=== PATIENT | male | born 1940 | race Caucasian/White ===

== ENCOUNTER 2024-07-26 11:30 | Inpatient (IN) ==
[2024-07-26 12:22] LABS: ABS Eosinophils 0.2 10^3/uL (0.0-0.5); ABS Lymphocytes 1.1 10^3/uL (1.0-4.8); ABS Monocytes 0.6 10^3/uL (0.0-1.1); ABS Neutrophils 4.8 10^3/uL (1.5-7.6); ABS Nucleated RBC 0.01 10^3/ul; Eosinophil % 2.3 %; Lymphocyte % 16.9 %; Mean Corpuscular Hemoglobin 31.7 pg (27-33); Mean Corpuscular Volume 93.2 fL (80-97); Mean Platelet Volume 8.4 fL (7.5-11.2); Nucleated Red Blood Cells % 0.1 %/100WBC (0.0-0.8); Platelet Count 155 10^3/uL (150-450); Red Blood Count 4.72 10^6/uL (4.06-5.63); Red Cell Distribution Width 13.5 % (12-17); White Blood Count 6.7 10^3/uL (3.6-10.2)
[2024-07-26 12:33] LABS: INR 1.12 (0.85-1.14)
[2024-07-26] MEDS: Furosemide 20 mg/2 ml IV VIAL IV SLOW PU ONE (13:19)
[2024-07-26 13:45] LABS: Albumin 3.9 g/dL (3.2-5.2); Albumin/Globulin Ratio 1.8 (1-3); C Reactive Protein 23.66 mg/L (<8.01); Calcium 8.7 mg/dL (8.6-10.3); Globulin 2.2 g/dL (2-4); Magnesium 1.9 mg/dL (1.9-2.7); Phosphorus 3.5 mg/dL (2.5-5.0); Potassium 3.8 mmol/L (3.5-5.0); Total Bilirubin 1.1 mg/dL (0.2-1.0); Total Protein 6.1 g/dL (6.4-8.9); eGFR CKD-EPI 73.3 (>60)
[2024-07-26 13:54] LABS: Urine Appearance Clear; Urine Bilirubin Negative (Negative); Urine Blood Negative (Negative); Urine Color Yellow; Urine Glucose Negative (Negative); Urine Ketones Negative (Negative); Urine Nitrite Negative (Negative); Urine Protein Trace (Negative); Urine Specific Gravity 1.019 (1.002-1.030); Urine Urobilinogen Negative (Negative)
[2024-07-26 13:58] LABS: High Sensitivity Troponin 1 Hr 96 pg/mL (<20)
[2024-07-26] MEDS: Sulfur Hexaflouride MICROSPHR 25 MG VIAL IV PRN (14:54)
[2024-07-26] MEDS: Iohexol 350 (CONTRAST) 500 ML MDV IV ONE (16:44)
[2024-07-26] MEDS: cefTRIAXone 1 gm/50 mL D5W 1 GM/50 ML BAG IV ONE (18:23)
[2024-07-26] MEDS: Albuterol/Ipratropium NEB.SOL (2.5/0.5 MG) 3 ML NEB.SOLN INH SCH (19:20)
[2024-07-26] MEDS: methylPREDNISolone SOD SUCC 40 mg/ml 1 ml VIAL IV SCH (20:44)
[2024-07-26] MEDS: Furosemide 20 mg/2 ml IV VIAL IV ONE (20:44)
[2024-07-26] MEDS: Enoxaparin 40 MG/0.4 ML SYR SUBCUT SCH (20:47)
[2024-07-27 06:14] LABS: ABS Lymphocytes 0.4 10^3/uL (1.0-4.8); ABS Monocytes 0.1 10^3/uL (0.0-1.1); ABS Neutrophils 2.4 10^3/uL (1.5-7.6); Eosinophil % 0.1 %; Hematocrit 41.4 % (38-53); Hemoglobin 14.2 g/dL (13.2-16.3); Lymphocyte % 12.6 %; Mean Corpuscular Hemoglobin 31.6 pg (27-33); Mean Corpuscular Hgb Conc 34.4 g/dL (31-36); Mean Corpuscular Volume 91.9 fL (80-97); Mean Platelet Volume 8.4 fL (7.5-11.2); Nucleated Red Blood Cells % 0.1 %/100WBC (0.0-0.8); Platelet Count 145 10^3/uL (150-450); Red Cell Distribution Width 13.1 % (12-17); White Blood Count 2.9 10^3/uL (3.6-10.2)
[2024-07-27 06:31] LABS: Calcium 8.7 mg/dL (8.6-10.3); Creatinine, Serum 1.03 mg/dL (0.67-1.17); Phosphorus 4.2 mg/dL (2.5-5.0); Potassium 3.6 mmol/L (3.5-5.0); eGFR CKD-EPI 70.7 (>60)
[2024-07-27] MEDS: Aspirin EC 81 mg TAB.EC (enteric coated) PO SCH (08:19)
[2024-07-27 19:46] LABS: Calcium 9.2 mg/dL (8.6-10.3); Creatinine, Serum 1.18 mg/dL (0.67-1.17); Magnesium 1.9 mg/dL (1.9-2.7); Potassium 3.8 mmol/L (3.5-5.0); eGFR CKD-EPI 60.1 (>60)
[2024-07-27] MEDS: Albuterol 2.5mg/3 ml (0.083%) NEB.SOLN INH PRN (23:12)
[2024-07-28 05:56] LABS: ABS Lymphocytes 0.5 10^3/uL (1.0-4.8); ABS Monocytes 0.2 10^3/uL (0.0-1.1); ABS Neutrophils 6.4 10^3/uL (1.5-7.6); Hematocrit 38.4 % (38-53); Lymphocyte % 6.9 %; Mean Corpuscular Hemoglobin 31.4 pg (27-33); Mean Corpuscular Volume 92.5 fL (80-97); Mean Platelet Volume 8.3 fL (7.5-11.2); Platelet Count 169 10^3/uL (150-450); Red Blood Count 4.15 10^6/uL (4.06-5.63); Red Cell Distribution Width 13.3 % (12-17); White Blood Count 7.2 10^3/uL (3.6-10.2)
[2024-07-28 06:33] LABS: Calcium 8.6 mg/dL (8.6-10.3); Creatinine, Serum 1.01 mg/dL (0.67-1.17); Potassium 4.1 mmol/L (3.5-5.0); eGFR CKD-EPI 72.4 (>60)
[2024-07-28 07:09] LABS: PCO2 Arterial 37 mmHg (35-45); PO2 Arterial 77 mmHg (80-100)
[2024-07-28] MEDS: Furosemide 20 mg/2 ml IV VIAL IV SLOW PU ONE (08:51)
[2024-07-28] MEDS: Furosemide 20 mg/2 ml IV VIAL IV ONE (21:18)
[2024-07-29] MEDS: Albuterol/Ipratropium NEB.SOL (2.5/0.5 MG) 3 ML NEB.SOLN INH PRN (02:09)
[2024-07-29 10:12] VITALS: BP 112/60
[2024-07-29 12:08] LABS: Mycoplasma pneumoniae IgG Ab Positive (Negative); Mycoplasma pneumoniae IgM Ab Negative (Negative)
== END 2024-07-29 14:27 | disposition home or self-care (01) | DRG 189 ==
LOC: EDHOLD 11:30 → ED 11:30 → MEDTELE 21:36 → SUATTDRO 07-27 18:00
PROVIDERS: ADMIT Internal Medicine; ATTEND Student in an Organized Health Care Education/Training Program